=== PATIENT | female | born 1970 | race Caucasian/White ===

== ENCOUNTER 2017-10-19 15:57 | Emergency (ER) | payer MEDICARE, MEDICAID ==
[2017-10-19 16:13] VITALS: BP 119/82; PULSE 109; RESP 16; TEMP 98; O2SAT 98
--- NOTE | 2017-10-19 19:13 | ED PDOC ---
HPI: General Adult Time Seen by Provider: 10/19/17 18:29 Chief Complaint (Nursing): Chest Pain History Per: Patient Additional Complaint(s): Pt. states for the past 2 days she's had mid-sternal chest pain intermittently. Reports that chest pain is associated with palpitations and SOB. She was seen by Dr. Moran yesterday who ordered blood work and an "echo." States last year she was dx with a PE and symptoms are similar. Further states that chest pain and SOB were minimal today and she actually came into ED for epigastric pain which has since resolved but chest pain is now worse. Denies hemoptysis, fever, cough, N/V/D, fever, leg pain, trauma. Currently without any abdominal pain. Past Medical History Reviewed: Historical Data, Nursing Documentation, Vital Signs Vital Signs: Last Vital Signs Temp 98.0 F 10/19/17 16:11 Pulse 109 H 10/19/17 19:44 Resp 16 10/19/17 16:11 BP 119/82 10/19/17 16:11 Pulse Ox 98 10/19/17 19:44 - Medical History PMH: Anxiety, Bipolar Disorder, Migraine, Pulmonary Embolism, Sexually Transmitted Disease Denies: Anemia, Arthritis, CHF, COPD, HIV, HTN, Hypercholesterolemia, Hypothyroidism, Rheumatoid Arthritis - Surgical History Surgical History: Back Surgery (6 months ago), Cholecystectomy - Family History Family History: States: Stroke (father) - Home Medications Home Medications: Ambulatory Orders Medication Instructions Recorded ARIPiprazole [Abilify] 10 mg PO DAILY #0 tab 01/28/16 Amitriptyline [Elavil] 25 mg PO HS #0 tab 01/28/16 Bisoprolol [Zebeta] 5 mg PO DAILY #0 tab 01/28/16 Divalproex [Depakote ER(ONCE 500 mg PO DAILY #0 ter 01/28/16 DAILY)] Gabapentin [Neurontin] 300 mg PO DAILY #0 cap 01/28/16 Morphine [Morphine Extended 15 mg PO Q8 #90 tabsr 01/28/16 Release Tab] Morphine [Morphine Immediate 15 mg PO Q8 PRN #90 tab 01/28/16 Release Tab] PARoxetine [Paxil] 20 mg PO DAILY #0 tab 01/28/16 Rizatriptan Benzoate [Rizatriptan] 10 mg PO PRN PRN #30 01/28/16 traZODone [Desyrel] 50 mg PO HS PRN #0 tab 01/28/16 - Allergies Allergies/Adverse Reactions: Allergies Allergy/AdvReac Type Severity Reaction Status Date / Time No Known Allergies Allergy Verified 10/19/17 16:11 Review of Systems ROS Statement: Except As Marked, All Systems Reviewed And Found Negative Cardiovascular: Positive for: Chest Pain, Palpitations Gastrointestinal: Positive for: Abdominal Pain Physical Exam - Reviewed Nursing Documentation Reviewed: Yes Vital Signs Reviewed: Yes - Physical Exam Appears: Positive for: Well, Non-toxic, No Acute Distress Head Exam: Positive for: ATRAUMATIC, NORMAL INSPECTION, NORMOCEPHALIC Skin: Positive for: Normal Color, Warm. Negative for: Rash Eye Exam: Positive for: Normal appearance Neck: Positive for: Normal, Painless ROM Cardiovascular/Chest: Positive for: Chest Non Tender, Tachycardia. Negative for : Murmur, Irregularly Irregular Respiratory: Positive for: CNT, Normal Breath Sounds Gastrointestinal/Abdominal: Positive for: Normal Exam, Bowel Sounds, Soft. Negative for: Tenderness, Distended, Guarding, Rebound Back: Positive for: Normal Inspection. Negative for: L CVA Tenderness, R CVA Tenderness Extremity: Positive for: Normal ROM Neurologic/Psych: Positive for: Alert, Oriented - Laboratory Results Result Diagrams: 10/19/17 19:20 10/19/17 19:20 - ECG ECG: Positive for: Interpreted By Me ECG Rhythm: Positive for: Sinus Tachycardia. Negative for: ST/T Changes Rate: 109 O2 Sat by Pulse Oximetry: 98 - Radiology X-Ray: Interpreted by Me (CXR) X-Ray Interpretation: No Acute Disease - Progress ED Course And Treament: Labs ordered. CTA chest w/ IV contrast ordered. CXR ordered. Pt. placed on patent prosecution paralegal. 1944 LFTs are elevated. Abd US ordered. Pt. in no distress. Disposition - Clinical Impression Clinical Impression: Chest pain, Palpitations, Abdominal pain, Transaminitis - Patient ED Disposition Is Patient to be Admitted: Transfer of Care (Signd out to Amirah ALBERT pending imaging results and final disposition.) - Disposition Disposition Time: 20:00 Condition: STABLE Forms: [employer] (Latvian)
[2017-10-19 19:24] LABS: BASO # 0.1 K/uL (0.0-0.2); EOS # 0.3 K/uL (0.0-0.7); EOS % 4.5 % (0.0-4.0); HEMOGLOBIN 13.2 g/dL (12.0-16.0); LYMPH # 1.8 K/uL (1.0-4.3); MEAN CORPUSCULAR HEMOGLOBIN 29.5 pg (27.0-31.0); MEAN CORPUSCULAR HGB CONC 32.4 g/dL (33.0-37.0); MEAN PLATELET VOLUME 8.8 fl (7.2-11.7); MONO # 0.4 K/uL (0.0-0.8); MONO % 5.8 % (0.0-10.0); NEUT # 4.8 K/uL (1.8-7.0); NEUT % 64.7 % (50.0-75.0); NRBC % 0.1 % (0.0-0.0); RBC 4.48 Mil/uL (3.80-5.20); RED CELL DISTRIBUTION WIDTH 14.3 % (11.5-14.5); WHITE BLOOD COUNT 7.5 K/uL (4.8-10.8)
[2017-10-19 19:33] LABS: LIPASE 49 U/L (23-300)
[2017-10-19 19:37] LABS: ALB/GLOB RATIO 1.1 (1.0-2.1); ALBUMIN 3.9 g/dL (3.5-5.0); ALT/SGPT 484 U/L (9-52); AST/SGOT 305 U/L (14-36); BLOOD UREA NITROGEN 11 mg/dl (7-17); CALCIUM 8.9 mg/dL (8.4-10.2); GFR AFRICAN-AMERICAN > 60; GFR NON-AFRICAN AMERICAN > 60
[2017-10-19 19:43] LABS: INR 1.1 (0.9-1.2); PARTIAL THROMBOPLASTIN TIME 37.4 Seconds (25.6-37.1); PROTHROMBIN TIME 12.7 Seconds (9.8-13.1)
[2017-10-19] MEDS ORDERED: Iodixanol 320 MG/ML 100 ML BOTTLE IV ONE (19:47)
[2017-10-19] MEDS ORDERED: Sodium Chloride 0.9% 50 ML IV ONE (19:47)
--- NOTE | 2017-10-19 21:04 | US ---
EXAM: US Abdomen Complete CLINICAL HISTORY: 47 years old, female; Pain; Abdominal pain; Epigastric; Prior surgery; Surgery date: 6+ months; Surgery type: S/P cholecystectomy; Additional info: Epigastric pain, elevated lfts TECHNIQUE: Real-time ultrasound of the abdomen (complete) with image documentation. COMPARISON: No relevant prior studies available. FINDINGS: Liver: Normal echogenicity. No mass. No intrahepatic bile duct dilatation. Gallbladder: Cholecystectomy. Common bile duct: 0.68 cm in diameter. No stones. Pancreas: Unremarkable as visualized. Kidneys: Normal echogenicity. No hydronephrosis. Spleen: No splenomegaly. Aorta: Unremarkable. No aneurysm. Inferior vena cava: Unremarkable. Free fluid: No significant free fluid. IMPRESSION: 1.No acute findings. 2.Non-acute findings are described above.
--- NOTE | 2017-10-19 21:11 | ED PDOC ---
- Laboratory Results Result Diagrams: 10/19/17 19:20 10/19/17 19:20 - ECG O2 Sat by Pulse Oximetry: 98 - Progress ED Course And Treament: Case endorsed to marketing underwriter from [employer] ALBERT pending imaging studies EXAM: US Abdomen Complete CLINICAL HISTORY: 47 years old, female; Pain; Abdominal pain; Epigastric; Prior surgery; Surgery date: 6+ months; Surgery type: S/P cholecystectomy; Additional info: Epigastric pain, elevated lfts TECHNIQUE: Real-time ultrasound of the abdomen (complete) with image documentation. COMPARISON: No relevant prior studies available. FINDINGS: Liver: Normal echogenicity. No mass. No intrahepatic bile duct dilatation. Gallbladder: Cholecystectomy. Common bile duct: 0.68 cm in diameter. No stones. Pancreas: Unremarkable as visualized. Kidneys: Normal echogenicity. No hydronephrosis. Spleen: No splenomegaly. Aorta: Unremarkable. No aneurysm. Inferior vena cava: Unremarkable. Free fluid: No significant free fluid. IMPRESSION: 1. No acute findings. 2. Non-acute findings are described above. EXAM: CT Angiography Chest With Intravenous Contrast CLINICAL HISTORY: 47 years old, female; Pain and signs and symptoms; Shortness of breath; Chest pain; Type not specified; Additional info: Chest pain, palpitations. Sent phy. Doc. TECHNIQUE: Axial computed tomographic angiography images of the chest with intravenous contrast using pulmonary embolism protocol. All CT scans at this facility use one or more dose reduction techniques, viz.: automated exposure control; ma/kV adjustment per patient size (including targeted exams where dose is matched to indication; i.e. head); or iterative reconstruction technique. MIP reconstructed images were created and reviewed. Coronal and sagittal reformatted images were created and reviewed. CONTRAST: 70 mL of [id number] administered intravenously. COMPARISON: CT - ANGIO CHEST PE PROTOCOL 2016-01-27 17:09 FINDINGS: Limitations: Suboptimal timing of bolus. Pulmonary arteries: No pulmonary embolism. Aorta: No aneurysm. No dissection. Lungs: Minimal atelectasis. No consolidation. Few pulmonary nodules, up to 0.3 cm, grossly stable. Pleural space: No significant effusion. No pneumothorax. Heart: No cardiomegaly. No significant pericardial effusion. Bones/joints: Postsurgical changes of spine. No acute fracture. Soft tissues: Unremarkable. Lymph nodes: No pathologically enlarged lymph nodes. Gallbladder and bile ducts: Cholecystectomy. Upper abdomen: Elevated RIGHT hemidiaphragm. Tubes, lines and devices: Spinal stimulators. IMPRESSION: 1. No CT evidence of pulmonary embolism. 2. Incidental/non-acute findings are described above. Case discussed with ED attending Dr. Espinosa; due to elevated LFTs and complaint of "mild" RUQ discomfort on exam; will order CT abd/pelvis without contrast and repeat trop; if neg can be discharged with outpatient follow up EXAM: CT Abdomen and Pelvis Without Intravenous Contrast CLINICAL HISTORY: 47 years old, female; Pain and abnormal findings; Abnormal lab test; Elevated liver enzymes; Abdominal pain; Generalized; Prior surgery; Surgery date: 6+ months; Surgery type: Cholecystectomy. Back surgery; Additional info: Abd pain, elevated lfts TECHNIQUE: Axial computed tomography images of the abdomen and pelvis without intravenous contrast. All CT scans at this facility use one or more dose reduction techniques, viz.: automated exposure control; ma/kV adjustment per patient size (including targeted exams where dose is matched to indication; i.e. head); or iterative reconstruction technique. Coronal and sagittal reformatted images were created and reviewed. COMPARISON: US - ABDOMEN COMPLETE 2017-10-19 20:21 FINDINGS: Limitations: Lack of intravenous contrast. Streak artifact - mild. Lower thorax: See chest CT report for additional details. ABDOMEN: Liver: Unremarkable. Gallbladder and bile ducts: Cholecystectomy. No significant ductal dilation. Pancreas: Unremarkable. No ductal dilation. Spleen: No splenomegaly. Adrenals: No mass. Kidneys and ureters: Contrast within renal collecting systems and ureters. No hydronephrosis. Stomach and bowel: No definite mural thickening. No obstruction. Appendix: Normal caliber. No inflammation. PELVIS: Bladder: Contrast within bladder. Reproductive: Small ovarian follicles. ABDOMEN and PELVIS: Intraperitoneal space: No significant fluid collection. No free air. Bones/joints: Postsurgical changes of spine. No acute fracture. Soft tissues: Tiny umbilical hernia containing fat. Small ventral hernia containing fat. Vasculature: Unremarkable. No aneurysm. Lymph nodes: No pathologically enlarged lymph nodes. Tubes, lines and devices: Spinal stimulators. IMPRESSION: 1. No definite acute intraabdominal abnormality. 2. Incidental/non-acute findings are described above Repeat trop negative Patient educated on findings, copies of labs/imaging reports given. Advised follow up PMD 2-3 days. Return precautions given Disposition - Clinical Impression Clinical Impression: Chest pain, Palpitations, Abdominal pain, Transaminitis - POA Present On Arrival: None - Disposition Disposition: Routine/Home Disposition Time: 23:57 Condition: IMPROVED Instructions: Palpitations (ED), Chest Pain (ED), Abdominal Pain (ED) Forms: [employer] (Amharic)
--- NOTE | 2017-10-19 22:18 | CT ---
EXAM: CT Abdomen and Pelvis Without Intravenous Contrast CLINICAL HISTORY: 47 years old, female; Pain and abnormal findings; Abnormal lab test; Elevated liver enzymes; Abdominal pain; Generalized; Prior surgery; Surgery date: 6+ months; Surgery type: Cholecystectomy. Back surgery; Additional info: Abd pain, elevated lfts TECHNIQUE: Axial computed tomography images of the abdomen and pelvis without intravenous contrast. All CT scans at this facility use one or more dose reduction techniques, viz.: automated exposure control; ma/kV adjustment per patient size (including targeted exams where dose is matched to indication; i.e. head); or iterative reconstruction technique. Coronal and sagittal reformatted images were created and reviewed. COMPARISON: US - ABDOMEN COMPLETE 2017-10-19 20:21 FINDINGS: Limitations: Lack of intravenous contrast. Streak artifact - mild. Lower thorax: See chest CT report for additional details. ABDOMEN: Liver: Unremarkable. Gallbladder and bile ducts: Cholecystectomy. No significant ductal dilation. Pancreas: Unremarkable. No ductal dilation. Spleen: No splenomegaly. Adrenals: No mass. Kidneys and ureters: Contrast within renal collecting systems and ureters. No hydronephrosis. Stomach and bowel: No definite mural thickening. No obstruction. Appendix: Normal caliber. No inflammation. PELVIS: Bladder: Contrast within bladder. Reproductive: Small ovarian follicles. ABDOMEN and PELVIS: Intraperitoneal space: No significant fluid collection. No free air. Bones/joints: Postsurgical changes of spine. No acute fracture. Soft tissues: Tiny umbilical hernia containing fat. Small ventral hernia containing fat. Vasculature: Unremarkable. No aneurysm. Lymph nodes: No pathologically enlarged lymph nodes. Tubes, lines and devices: Spinal stimulators. IMPRESSION: 1. No definite acute intraabdominal abnormality. 2. Incidental/non-acute findings are described above.
[2017-10-20] MEDS: Alum-Mag Hydrox-Simethicone Susp (30 mL) PO ONE (00:15)
--- NOTE | 2017-10-20 13:17 | RAD ---
HISTORY: chest pain COMPARISON: Chest x-ray performed 10/19/17 at 1720 hours TECHNIQUE: Chest, one view. FINDINGS: LUNGS: No focal consolidation. Please note that chest x-ray has limited sensitivity for the detection of pulmonary masses. PLEURA: No significant pleural effusion identified. No definite pneumothorax . CARDIOVASCULAR: The cardiomediastinal silhouette appears within normal limits of size. OSSEOUS STRUCTURES: Dorsal thoracic spine stimulator leads with pacer pack partially imaged in the right abdomen. VISUALIZED UPPER ABDOMEN: Unremarkable. OTHER FINDINGS: None. IMPRESSION: No acute findings identified. See above.
--- NOTE | 2017-10-21 09:49 | CARD ---
APPROVED REPORT EKG Measurement Heart [id number] <Conclusion> Sinus tachycardia Otherwise normal ECG
== END 2017-10-20 00:27 | disposition home or self-care (01) ==
LOC: H.ER 15:57
DX: R07.89 Other chest pain (principal); R00.2 Palpitations; R10.9 Unspecified abdominal pain; Z90.49 Acquired absence of other specified parts of digestive tract
CPT/HCPCS: 71045; 71275; 74176; 76700; 80053; 81025; 83690; 84484; 84703; 85025; 85610; 85730; 93005; 99283; Q9967

== ENCOUNTER 2018-02-27 07:37 | Emergency (ER) | payer MEDICARE, MEDICAID ==
[2018-02-27 07:42] VITALS: BMI 31.6
[2018-02-27] MEDS ORDERED: PROPARACAINE/FLUORESCEIN SOD 100 DROP/5 ML BOTTLE OD STA (08:02)
[2018-02-27] MEDS ORDERED: PROPARACAINE/FLUORESCEIN SOD 100 DROP/5 ML BOTTLE ONE (08:21)
[2018-02-27] MEDS ORDERED: Polymyxin/Trimethoprim Ophth Soln OD STA (08:40)
[2018-02-27 09:13] VITALS: BP 132/70; PULSE 76; RESP 18; TEMP 98.4; O2SAT 99
--- NOTE | 2018-02-27 12:19 | ED PDOC ---
HPI: Eye Injury/Pain Time Seen by Provider: 02/27/18 07:48 Chief Complaint (Nursing): Eye Problem Chief Complaint (Provider): eye pain History Per: Patient Onset/Duration Of Symptoms: Hrs (4), Sudden Onset Current Symptoms Are (Timing): Still Present Injury To Eye?: No Associated Symptoms: Pain, FB Sensation, Discharge From Eye (tearing). denies: Decreased Vision, Swelling, Itching Additional Complaint(s): 47yo female awoke w right eye pain, tearing and mild light sensitivity. Unknown direct trauma. No change in vision, no fever, swelling or eye discharge. Does not wear contacts. Past Medical History Reviewed: Historical Data, Nursing Documentation, Vital Signs Vital Signs: Last Vital Signs Temp 98.4 F 02/27/18 09:12 Pulse 76 02/27/18 09:12 Resp 18 02/27/18 09:12 BP 132/70 02/27/18 09:12 Pulse Ox 99 02/27/18 09:12 - Medical History PMH: Anxiety, Bipolar Disorder, Depression, Migraine, Pulmonary Embolism, Schizophrenia, Sexually Transmitted Disease Denies: Anemia, Arthritis, CHF, COPD, HIV, HTN, Hypercholesterolemia, Hypothyroidism, Rheumatoid Arthritis - Surgical History Surgical History: Back Surgery (6 months ago), Cholecystectomy - Family History Family History: States: Unknown Family Hx, Stroke (father) - Home Medications Home Medications: Ambulatory Orders Medication Instructions Recorded ARIPiprazole [Abilify] 10 mg PO DAILY #0 tab 01/28/16 Amitriptyline [Elavil] 25 mg PO HS #0 tab 01/28/16 Bisoprolol [Zebeta] 5 mg PO DAILY #0 tab 01/28/16 Divalproex [Depakote ER(ONCE 500 mg PO DAILY #0 ter 01/28/16 DAILY)] Gabapentin [Neurontin] 300 mg PO DAILY #0 cap 01/28/16 Morphine [Morphine Extended 15 mg PO Q8 #90 tabsr 01/28/16 Release Tab] Morphine [Morphine Immediate 15 mg PO Q8 PRN #90 tab 01/28/16 Release Tab] PARoxetine [Paxil] 20 mg PO DAILY #0 tab 01/28/16 Rizatriptan Benzoate [Rizatriptan] 10 mg PO PRN PRN #30 01/28/16 traZODone [Desyrel] 50 mg PO HS PRN #0 tab 01/28/16 Naproxen [Naprosyn] 500 mg PO BID PRN #14 tablet 02/27/18 - Allergies Allergies/Adverse Reactions: Allergies Allergy/AdvReac Type Severity Reaction Status Date / Time No Known Allergies Allergy Verified 02/27/18 07:49 Review of Systems Constitutional: Negative for: Fever Eyes: Positive for: Pain, Redness. Negative for: Vision Change, Conjunctivae Inflammation, Eyelid Inflammation ENT: Negative for: Ear Pain, Throat Pain Neurological: Negative for: Weakness, Headache, Dizziness Physical Exam - Reviewed Nursing Documentation Reviewed: Yes Vital Signs Reviewed: Yes - Physical Exam Appears: Positive for: Well, Non-toxic Head Exam: Positive for: ATRAUMATIC, NORMAL INSPECTION, NORMOCEPHALIC Skin: Positive for: Normal Color, Warm, Dry Eye Exam: Positive for: Normal appearance, Other (fluroscein stain +uptake abrasion pattern central cornea, relief of pain w procaine drops). Negative for : Periorbital swelling, Periorbital tenderness, Conjunctival injection, Scleral icterus Respiratory: Negative for: Respiratory Distress - ECG O2 Sat by Pulse Oximetry: 99 Medical Decision Making Medical Decision Making: exam reveals corneal abrasion initiate Abx drops and pain control d/w ophtho Dr Lucero it applications developer, recommends patching eye and will see her in office Disposition - Clinical Impression Clinical Impression: Corneal abrasion - Patient ED Disposition Is Patient to be Admitted: No Counseled Patient/Family Regarding: Studies Performed, Diagnosis, Need For Followup, Rx Given (polytrim given to pt) - Disposition Referrals: Marvel Lucero MD [Staff Provider] - Disposition: Routine/Home Disposition Time: 09:15 Condition: STABLE Additional Instructions: Followup with eye doctor as directed. Use polytrim eye drop antibiotic every 4 hours one drop to right eye. Return to ER for any change in vision, worse pain or any concern. Do not rub the eye. Use naprosyn for pain. Prescriptions: Naproxen [Naprosyn] 500 mg PO BID PRN #14 tablet PRN Reason: Pain, Moderate (4-7) Instructions: Corneal Abrasion Forms: [employer] (Sierra Leonean)
== END 2018-02-27 09:12 | disposition home or self-care (01) ==
LOC: H.ER 07:37
DX: S05.00XA Injury of conjunctiva and corneal abrasion without foreign body, unspecified eye, initial encounter (principal); Y92.89 Other specified places as the place of occurrence of the external cause

== ENCOUNTER 2018-05-04 11:24 | Emergency (ER) | payer MEDICARE, MEDICAID ==
[2018-05-04 11:24] VITALS: BMI 31.6
[2018-05-04 11:29] VITALS: TEMP 98.5
--- NOTE | 2018-05-04 12:20 | ED PDOC ---
HPI: Back Time Seen by Provider: 05/04/18 11:31 Chief Complaint (Nursing): Back Pain Chief Complaint (Provider): Back Pain History Per: Patient Additional Complaint(s): 47 yo female, PMH of Chronic back pain, presents to ED with complaints of severe mid-lower back pain that started acutely last night. No trauma or injury. Pt taking her Percocet 5/325 without relief, took 2 tablets this am. No bowel or bladder dysfunction, no UTI like complaints. Past Medical History Reviewed: Historical Data, Nursing Documentation, Vital Signs Vital Signs: Last Vital Signs Temp 98.5 F 05/04/18 11:35 Pulse 92 H 05/04/18 11:35 Resp 19 05/04/18 11:35 BP 109/70 05/04/18 11:35 Pulse Ox 99 05/04/18 11:35 - Medical History PMH: Anxiety, Bipolar Disorder, Depression, Hypercholesterolemia, Migraine, Pulmonary Embolism, Schizophrenia, Sexually Transmitted Disease Denies: Anemia, Arthritis, CHF, COPD, HIV, HTN, Hypothyroidism, Rheumatoid Arthritis - Surgical History Surgical History: Back Surgery (6 months ago), Cholecystectomy - Family History Family History: States: Unknown Family Hx, Stroke (father) - Living Arrangements Living Arrangements: With Family - Social History Current smoker - smoking cessation education provided: No Alcohol: None Drugs: Denies - Home Medications Home Medications: Ambulatory Orders Medication Instructions Recorded ARIPiprazole [Abilify] 10 mg PO DAILY #0 tab 01/28/16 Amitriptyline [Elavil] 25 mg PO HS #0 tab 01/28/16 Bisoprolol [Zebeta] 5 mg PO DAILY #0 tab 01/28/16 Divalproex [Depakote ER(ONCE 500 mg PO DAILY #0 ter 01/28/16 DAILY)] Gabapentin [Neurontin] 300 mg PO DAILY #0 cap 01/28/16 Morphine [Morphine Extended 15 mg PO Q8 #90 tabsr 01/28/16 Release Tab] Morphine [Morphine Immediate 15 mg PO Q8 PRN #90 tab 01/28/16 Release Tab] PARoxetine [Paxil] 20 mg PO DAILY #0 tab 01/28/16 Rizatriptan Benzoate [Rizatriptan] 10 mg PO PRN PRN #30 01/28/16 traZODone [Desyrel] 50 mg PO HS PRN #0 tab 01/28/16 Naproxen [Naprosyn] 500 mg PO BID PRN #14 tablet 02/27/18 - Allergies Allergies/Adverse Reactions: Allergies Allergy/AdvReac Type Severity Reaction Status Date / Time No Known Allergies Allergy Verified 05/04/18 11:38 Review of Systems ROS Statement: Except As Marked, All Systems Reviewed And Found Negative Physical Exam - Reviewed Nursing Documentation Reviewed: Yes Vital Signs Reviewed: Yes - Physical Exam Appears: Positive for: Non-toxic, No Acute Distress, Uncomfortable Head Exam: Positive for: ATRAUMATIC, NORMAL INSPECTION, NORMOCEPHALIC Skin: Positive for: Normal Color, Warm, DRY Eye Exam: Positive for: EOMI, Normal appearance, PERRL ENT: Positive for: Normal ENT Inspection Neck: Positive for: Normal, Painless ROM Cardiovascular/Chest: Positive for: Regular Rate, Rhythm Respiratory: Positive for: CNT, Normal Breath Sounds Gastrointestinal/Abdominal: Positive for: Normal Exam, Soft Back: Positive for: Vertebral Tenderness, Muscle Spasm Extremity: Positive for: Normal ROM Neurologic/Psych: Positive for: Alert, Oriented - ECG O2 Sat by Pulse Oximetry: 99 Medical Decision Making Medical Decision Making: Pt medicated with Morphine IV, Doing well on re-eval UA WNL CT T Spine IMPRESSION: No evidence of acute fracture or subluxation. No evidence of significant spinal or neural foraminal narrowing. Mild dextroscoliosis at the mid thoracic spine. Stimulator device and wires noted at the mid and lower thoracic spine. CT LS SPINE IMPRESSION: No significant interval change in the lumbar spine since the previous study dated 03/02/2018 as described above. If there is still clinical concern for acute pathology or infectious process further assessment by enhanced CT or MRI may be obtained. Pt made aware of all results and demonstrated full understanding. Pt reports she is doing well and comfortable going home at this time. Pt advised follow up with Pain management Disposition - Clinical Impression Clinical Impression: Chronic back pain - Disposition Disposition: Routine/Home Disposition Time: 15:03 Condition: STABLE Instructions: Chronic Pain Forms: [employer] (Salvadorean)
[2018-05-04 13:20] LABS: SQUAMOUS EPITHIAL 1 /hpf (0-5); URINE BILIRUBIN NEGATIVE (NEGATIVE); URINE BLOOD NEGATIVE (NEGATIVE); URINE CLARITY CLEAR (Clear); URINE COLOR YELLOW (YELLOW); URINE GLUCOSE (UA) NEG (Normal); URINE LEUKOCYTE ESTERASE NEG Leu/uL (Negative); URINE PROTEIN NEGATIVE (NEGATIVE); URINE UROBILINOGEN 0.2-1.0 mg/dL (0.2-1.0)
--- NOTE | 2018-05-04 13:49 | CT ---
Date of service: 05/04/2018 PROCEDURE: CT Thoracic Spine without contrast HISTORY: severe pain COMPARISON: Comparison is made to the previous CT of the chest with contrast dated 01/27/2016 and 10/19/2017 TECHNIQUE: Axial computed tomography images were obtained of the thoracic spine without intravenous contrast. Coronal and sagittal reformatted images were created and reviewed. Radiation dose: Total exam DLP = 782.84 mGy-cm. This CT exam was performed using one or more of the following dose reduction techniques: Automated exposure control, adjustment of the mA and/or kV according to patient size, and/or use of iterative reconstruction technique. FINDINGS: VERTEBRAE: Unremarkable. No fracture. Normal alignment. There is thoracic spine dextroscoliosis noted. DISCS/SPINAL CANAL/NEURAL FORAMINA: Within the limits of the CT technique, no disc herniation seen. No central canal or neural foraminal stenosis.. There is stimulator wires extending to mid and lower portion of the thoracic spinal canal. PARASPINAL SOFT TISSUES: Unremarkable. OTHER FINDINGS: Unremarkable. IMPRESSION: No evidence of acute fracture or subluxation. No evidence of significant spinal or neural foraminal narrowing. Mild dextroscoliosis at the mid thoracic spine. Stimulator device and wires noted at the mid and lower thoracic spine.
--- NOTE | 2018-05-04 14:03 | CT ---
Date of service: 05/04/2018 PROCEDURE: CT Lumbar Spine without contrast HISTORY: severe pain COMPARISON: Comparison is made to the previous CT of the abdomen and pelvis dated 10/19/2017 and previous lumbar spine CT study dated 03/02/2018 TECHNIQUE: Axial computed tomography images were obtained of the lumbar spine without the use of intravenous contrast. Coronal and sagittal reformatted images were created and reviewed. Radiation dose: Total exam DLP = 1158.06 mGy-cm. This CT exam was performed using one or more of the following dose reduction techniques: Automated exposure control, adjustment of the mA and/or kV according to patient size, and/or use of iterative reconstruction technique. FINDINGS: VERTEBRAE: The patient is again status post bilateral L5 laminectomy and bilateral partial laminectomy at S1. The patient is also status post internal fixation at the lower lumbar spine by pedicle screws and vertical writes extending from L4 to S1. There is also intervertebral spacer at L5-S1 disc space. Again noted is grade 1 approximately 8 millimeter anterior spondylolisthesis of L5 relative to S1. DISCS/SPINAL CANAL/NEURAL FORAMINA: L1-2: Unremarkable. L2-3: Unremarkable. L3-4: Again noted is small central disc bulge which resulting in mild narrowing of the bilateral lateral recesses. Otherwise no significant narrowing of the thecal sac or neural foramina noted. Posterior ligament and facet joint hypertrophy at this level are also noted. L4-5: Status post decompressive L5 laminectomy bilaterally. No evidence of significant spinal or neural foraminal narrowing. L5-S1: Partial bilateral laminectomy at S1 and bilateral L5 laminectomies again noted. No evidence of significant spinal or neural foraminal narrowing. PARASPINAL SOFT TISSUES: No significant interval change noted in the paraspinal soft tissue since the previous exam. Subcutaneous stranding is noted at the lower back likely represent postsurgical changes. There is no definite evidence of discrete drainable fluid collection. However the assessment of the soft tissue is limited due to streak artifact from the hardware. OTHER FINDINGS: None. IMPRESSION: No significant interval change in the lumbar spine since the previous study dated 03/02/2018 as described above. If there is still clinical concern for acute pathology or infectious process further assessment by enhanced CT or MRI may be obtained.
[2018-05-04 15:14] VITALS: BP 121/65; PULSE 93; RESP 18; O2SAT 100
== END 2018-05-04 15:16 | disposition home or self-care (01) ==
LOC: H.ER 11:24
DX: M54.9 Dorsalgia, unspecified (principal); G89.29 Other chronic pain; E78.00 Pure hypercholesterolemia, unspecified
CPT/HCPCS: 72128; 72131; 81003; 81025; 96374; 99283; J1885; J2270

== ENCOUNTER 2018-07-19 11:04 | Emergency (ER) | payer MEDICARE, MEDICAID ==
[2018-07-19 11:04] VITALS: BMI 31.6
[2018-07-19 11:10] VITALS: TEMP 98.4; O2SAT 99
[2018-07-19] MEDS ORDERED: Sodium Chloride 0.9% 1,000 ML IV STA ×2 (11:39→15:44)
[2018-07-19 12:28] LABS: BASO % 0.6 % (0.0-2.0); EOS # 0.3 K/uL (0.0-0.7); EOS % 5.2 % (0.0-4.0); HEMOGLOBIN 11.3 g/dL (12.0-16.0); LYMPH # 1.8 K/uL (1.0-4.3); LYMPH % 32.7 % (20.0-40.0); MEAN CELL VOLUME 89.3 fl (81.0-99.0); MEAN CORPUSCULAR HEMOGLOBIN 29.5 pg (27.0-31.0); MEAN CORPUSCULAR HGB CONC 33.1 g/dL (33.0-37.0); MONO # 0.4 K/uL (0.0-0.8); MONO % 7.1 % (0.0-10.0); NEUT % 54.4 % (50.0-75.0); RBC 3.83 Mil/uL (3.80-5.20); WHITE BLOOD COUNT 5.6 K/uL (4.8-10.8)
[2018-07-19 12:38] LABS: ALB/GLOB RATIO 1.1 (1.0-2.1); ALBUMIN 3.6 g/dL (3.5-5.0); ALT/SGPT 100 U/L (9-52); AST/SGOT 55 U/L (14-36); BLOOD UREA NITROGEN 12 mg/dl (7-17); CALCIUM 8.8 mg/dL (8.4-10.2); GFR NON-AFRICAN AMERICAN > 60
--- NOTE | 2018-07-19 12:41 | ED PDOC ---
HPI: Headache Time Seen by Provider: 07/19/18 11:26 Chief Complaint (Provider): i have a migrane History Per: Patient History/Exam Limitations: no limitations Onset/Duration Of Symptoms: Days (3), Gradual Current Symptoms Are (Timing): Still Present Severity: Moderate Quality: Tightness Preceeding Symptoms: Known Migraine Symptoms Associated Symptoms: Photophobia, Nausea Additional Complaint(s): 47yo female with long history of migranes and back pain, on chronic narcotics, recently had narcotic regimen changed, also states quit smoking 3 weeks ago, now presents w migrane symptoms for 3 days- tightness and sensitivity to light, nausea, ongoing back pain. Denies fever, neck pain or stiffness, rash, thunderclap headache or trauma/falls. Taking fioricet with minimal relief in addition to her daily morphine. [facility] database query completed, last received jul 15, states she still had mo rphine at home. Past Medical History Vital Signs: Last Vital Signs Temp 98.4 F 07/19/18 11:08 Pulse 90 07/19/18 11:08 Resp 18 07/19/18 11:08 BP 131/85 07/19/18 11:08 Pulse Ox 99 07/19/18 11:08 - Medical History PMH: Anxiety, Bipolar Disorder, Depression, Hypercholesterolemia, Migraine, Pulmonary Embolism, Schizophrenia, Sexually Transmitted Disease Denies: Anemia, Arthritis, CHF, COPD, HIV, HTN, Hypothyroidism, Rheumatoid Arthritis - Surgical History Surgical History: Back Surgery (6 months ago), Cholecystectomy - Family History Family History: States: Unknown Family Hx, Stroke (father) - Home Medications Home Medications: Ambulatory Orders Medication Instructions Recorded ARIPiprazole [Abilify] 10 mg PO DAILY #0 tab 01/28/16 Amitriptyline [Elavil] 25 mg PO HS #0 tab 01/28/16 Bisoprolol [Zebeta] 5 mg PO DAILY #0 tab 01/28/16 Divalproex [Depakote ER(ONCE 500 mg PO DAILY #0 ter 01/28/16 DAILY)] Gabapentin [Neurontin] 300 mg PO DAILY #0 cap 01/28/16 Morphine [Morphine Extended 15 mg PO Q8 #90 tabsr 01/28/16 Release Tab] Morphine [Morphine Immediate 15 mg PO Q8 PRN #90 tab 01/28/16 Release Tab] PARoxetine [Paxil] 20 mg PO DAILY #0 tab 01/28/16 Rizatriptan Benzoate [Rizatriptan] 10 mg PO PRN PRN #30 01/28/16 traZODone [Desyrel] 50 mg PO HS PRN #0 tab 01/28/16 Naproxen [Naprosyn] 500 mg PO BID PRN #14 tablet 02/27/18 Naproxen [Naprosyn] 500 mg PO BID PRN #14 tablet 07/19/18 - Allergies Allergies/Adverse Reactions: Allergies Allergy/AdvReac Type Severity Reaction Status Date / Time No Known Allergies Allergy Verified 05/04/18 11:38 Review of Systems ROS Statement: Except As Marked, All Systems Reviewed And Found Negative Constitutional: Negative for: Fever, Chills Cardiovascular: Negative for: Chest Pain, Palpitations Gastrointestinal: Positive for: Nausea. Negative for: Vomiting, Abdominal Pain Genitourinary Female: Negative for: Incontinence Musculoskeletal: Negative for: Neck Pain, Shoulder Pain, Back Pain Skin: Negative for: Rash, Lesions Neurological: Positive for: Headache, Dizziness. Negative for: Weakness, Numbness, Incoordination, Change in Speech Psych: Negative for: Depression Physical Exam - Reviewed Nursing Documentation Reviewed: Yes Vital Signs Reviewed: Yes - Physical Exam Appears: Positive for: Well, Non-toxic, No Acute Distress Head Exam: Positive for: ATRAUMATIC, NORMAL INSPECTION, NORMOCEPHALIC Skin: Positive for: Normal Color, Warm, DRY Eye Exam: Positive for: EOMI, Normal appearance, PERRL ENT: Positive for: Normal ENT Inspection Neck: Positive for: Normal, Painless ROM Cardiovascular/Chest: Positive for: Regular Rate, Rhythm Respiratory: Positive for: CNT, Normal Breath Sounds Gastrointestinal/Abdominal: Positive for: Normal Exam, Soft Back: Positive for: Normal Inspection Extremity: Positive for: Normal ROM Neurologic/Psych: Positive for: Alert, Oriented - Laboratory Results Result Diagrams: 07/19/18 12:04 07/19/18 12:04 - ECG O2 Sat by Pulse Oximetry: 99 Medical Decision Making Medical Decision Making: workup for acute on chronic migrane initiated toradol, reglan and IVF initiated labs reviewed, clinically unremarkable required additional meds for migrane- depakote and decadron with then resolution of headache Tolerated PO and wished to go home. DC from ED, followup neuro and PMD. Disposition - Clinical Impression Clinical Impression: Headache - Patient ED Disposition Is Patient to be Admitted: No Counseled Patient/Family Regarding: Studies Performed, Diagnosis, Need For Followup - Disposition Disposition: Routine/Home Disposition Time: 17:01 Condition: STABLE Additional Instructions: Followup with PMD and neurology as directed. Continue all medications. Return to ER for any worse or new symptoms. Prescriptions: Naproxen [Naprosyn] 500 mg PO BID PRN #14 tablet PRN Reason: Pain, Moderate (4-7) Instructions: Headache, Adult Forms: [facility] ([place])
[2018-07-19 15:42] VITALS: RESP 16
[2018-07-19] MEDS ORDERED: Dexamethasone 8 MG in Dextrose 5% In Water 50 ML IV ONE (15:43)
[2018-07-19] MEDS ORDERED: Dexamethasone 4 mg/1 ml ONE (15:50)
[2018-07-19] MEDS ORDERED: Valproate 500 MG in Sodium Chloride 0.9% 100 ML IVPB ONE (16:00)
[2018-07-19 17:38] VITALS: BP 147/89; PULSE 72
== END 2018-07-19 17:40 | disposition home or self-care (01) ==
LOC: H.ER 11:04
DX: R51 Headache (principal)
CPT/HCPCS: 80053; 81025; 82948; 83735; 85025; 96361; 96365; 96375; 99283; J1100; J1885; J2765; J7030